=== PATIENT | male | born 1965 | race American Indian/Alaskan Native ===

== ENCOUNTER 2016-08-07 04:33 | Emergency (ER) | payer OTHER ==
[2016-08-07 06:04] LABS: Basophils % (Auto) 1.3 % (0.0-1.8); Eosinophils % (Auto) 3.8 % (0.0-4.3); Hematocrit 38.3 % (35.5-45.6); Hemoglobin 13.1 gm/dl (11.8-15.2); Mean Corpuscular HGB Conc 34 % (32-34); Mean Corpuscular Hemoglobin 33 pg (28-32); Mean Corpuscular Volume 95 fl (84-94); Platelet Count 299 K/mm3 (140-440); Red Blood Count 4.03 M/mm3 (3.65-5.03); Red Cell Distribution Width 14.1 % (13.2-15.2); White Blood Count 6.2 K/mm3 (4.5-11.0)
[2016-08-07 06:30] LABS: Alanine Aminotransferase 24 units/L (7-56); Albumin/Globulin Ratio 1.1 %; Alkaline Phosphatase 107 units/L (35-129); Anion Gap 18 mmol/L; Bilirubin,Total 0.2 mg/dL (0.1-1.2); Blood Urea Nitrogen 8 mg/dL (9-20); Carbon Dioxide 28 mmol/L (22-30); Chloride 96.3 mmol/L (98-107); Glucose 104 mg/dL (75-100); Lipase 42 units/L (13-60); Potassium 4.9 mmol/L (3.6-5.0); Sodium 137 mmol/L (137-145); Total Protein 7.6 g/dL (6.3-8.2)
[2016-08-07 07:18] LABS: Bacteria,Urine 1+ /HPF (Negative); Bilirubin,Urine NEG (Negative); Blood,Urine NEG (Negative); Ketones,Urine NEG (Negative); Leukocyte Esterase,Urine TR (Negative); Mucus,Urine FEW /HPF; Nitrite,Urine NEG (Negative); Protein,Urine <15 mg/dL mg/dL (Negative); Urobilinogen,Urine < 2.0 mg/dL (<2.0)
[2016-08-07] MEDS ORDERED: MORPHINE IV ONE (10:51)
[2016-08-07] MEDS ORDERED: NACL 0.9% 1000 ML 1,000 ML IV ONE (10:51)
[2016-08-07] MEDS ORDERED: ZOFRAN IV ONE (10:51)
--- NOTE | 2016-08-07 11:51 | XRay Report ---
ABDOMINAL SERIES: History: Abdominal pain. Erect chest film shows no acute or significant changes involving the heart or lung joyce. There is no evidence of free air beneath the diaphragms. The gas pattern within the abdomen is unremarkable. There is no evidence of bowel dilatation, significant air-fluid levels, or masses. Organ shadows are unremarkable. IMPRESSION: Abdominal series within normal limits.
--- NOTE | 2016-08-07 12:23 | Emergency Department Report ---
HPI - General Chief Complaint: Abdominal Pain Time Seen by Provider: 08/07/16 10:40 - HPI HPI: The patient is a 50-year-old male who presents for evaluation of abdominal pain. The patient reports on and off abdominal pain for the past 3 months, recurrent for the past 3 days, constant for the past 3 days, 8/10 in severity, cramping and burning in quality, and associated with constipation. The patient denies fever, vomiting, diarrhea, blood in the stool, dark tarry stool, dysuria , hematuria, flank pain, inability to pass flatus. ED Past Medical Hx - Past Medical History Previous Medical History?: No - Surgical History Past Surgical History?: No - Social History Smoking Status: Current Every Day Smoker Substance Use Type: None - Medications Home Medications: Home Medications Medication Instructions Recorded Confirmed Last Taken Type Omeprazole Magnesium [PriLOSEC Otc] 20 mg PO QDAY #14 tablet. 08/07/16 Unknown Rx Ondansetron [Zofran TAB] 4 mg PO Q8HR PRN #15 tablet 08/07/16 Unknown Rx traMADol [Ultram 50 MG tab] 50 mg PO Q6HR PRN #15 tablet 08/07/16 Unknown Rx ED Review of Systems ROS: Stated complaint: CONSTIPATION/ABD PAIN Other details as noted in HPI Constitutional: denies: fever ENT: denies: throat or neck pain Respiratory: denies: cough, shortness of breath Cardiovascular: denies: chest pain Endocrine: denies unexplained weight loss or gain Gastrointestinal: reports abdominal pain, nausea Genitourinary: denies: dysuria Musculoskeletal: denies: leg swelling Skin: denies: rash Neurological: denies: headache Hematological/Lymphatic: denies: easy bleeding or easy bruising Psych: denies sadness or hopelessness Physical Exam - Physical Exam Vital Signs: Vital Signs 08/07/16 08/07/16 08/07/16 05:23 10:53 11:00 Temperature 98.7 F 98.1 F Pulse Rate 79 74 Respiratory 18 15 13 Rate Blood Pressure 151/92 Blood Pressure 151/92 113/87 [Left] O2 Sat by Pulse 100 100 100 Oximetry Physical Exam: General: well-nourished, well-developed, no acute distress Head: Normocephalic, atraumatic Eyes: normal sclera ENT: Mucous membranes are pale and dry Neck: No neck stiffness, no cervical adenopathy Respiratory: Breath sounds equal bilaterally, no wheezing, rales, or rhonchi Cardio: S1 and S2 present, no murmurs, rubs, gallops, capillary refill is delayed Abdomen: Normoactive bowel sounds, soft abdomen, generalized tenderness to palpation present, no rigidity, no guarding or rebound tenderness Chest WALL/Back: No tenderness to palpation of the chest wall, no CVA tenderness with percussion Musc: No pitting edema Skin: No rash Neuro: no facial drooping, normal speech Psych: Normal affect ED Course Vital Signs 08/07/16 08/07/16 08/07/16 05:23 10:53 11:00 Temperature 98.7 F 98.1 F Pulse Rate 79 74 Respiratory 18 15 13 Rate Blood Pressure 151/92 Blood Pressure 151/92 113/87 [Left] O2 Sat by Pulse 100 100 100 Oximetry ED Medical Decision Making - Lab Data Result diagrams: 08/07/16 05:38 08/07/16 05:38 - Medical Decision Making The patient was seen and examined by myself. The patient is placed on a turn laster and continuous pulse ox. On initial evaluation, the patient was found to be in no distress. Evaluation orders are placed. IV access is established and the patient is given 1 L normal saline fluid bolus for treatment of dehydration, and Zofran for nausea, and IV morphine for pain. Lab results were non-concerning including WBC, hemoglobin, hematocrit, electrolytes , renal function, LFTs, lipase. The patient was reevaluated and reported that their symptoms were markedly improved. The patient is stable for discharge with outpatient follow-up. The patient is given follow-up and return instructions. The patient expressed understanding and agreed with the plan. The patient is discharged in stable condition. Critical care attestation.: If time is entered above; I have spent that time in minutes in the direct care of this critically ill patient, excluding procedure time. ED Disposition Clinical Impression: Acute generalized abdominal pain, Dehydration Disposition: DISCHARGED TO HOME OR SELFCARE Is pt being admited?: No Does the pt Need Aspirin: No Condition: Stable Instructions: Peptic Ulcer (ED), Gastroesophageal Reflux Disease (ED), Acute Abdominal Pain (ED) Prescriptions: Omeprazole Magnesium [PriLOSEC Otc] 20 mg PO QDAY #14 tablet. Ondansetron [Zofran TAB] 4 mg PO Q8HR PRN #15 tablet PRN Reason: Nausea traMADol [Ultram 50 MG tab] 50 mg PO Q6HR PRN #15 tablet PRN Reason: Pain Referrals: PRIMARY CARE,MD [Primary Care Provider] - 3-5 Days Time of Disposition: 12:05
[2016-08-07 14:26] VITALS: BP 95/65
== END 2016-08-07 12:35 | disposition home or self-care (01) ==
LOC: ED 04:33
DX: E86.0 Dehydration (principal); R10.84 Generalized abdominal pain; F17.200 Nicotine dependence, unspecified, uncomplicated
CPT/HCPCS: 36415; 74022; 80053; 81001; 83690; 85025; 96361; 96374; 96375; 99284; J2270; J2405; J7030

== ENCOUNTER 2019-08-16 11:25 | Emergency (ER) | payer SELFPAY ==
[2019-08-16] MEDS ORDERED: HALOPERIDOL LACTATE 5 MG/1 ML INJ IM PRN (11:48)
[2019-08-16] MEDS ORDERED: LORazepam 2 MG/ML VIAL IM PRN (11:48)
--- NOTE | 2019-08-16 11:57 | Emergency Department Report ---
<STEFANIA ECHOLS - Last Filed: 08/16/19 15:53> ED General Adult HPI - General Chief complaint: Overdose Stated complaint: EVALUATION PUI?: No Time Seen by Provider: 08/16/19 11:48 Source: patient, EMS ( EMS documentation not available at time of chart dictation ), RN notes reviewed Mode of arrival: Stretcher Limitations: Other (Patient is intoxicated) - History of Present Illness Initial comments: Patient is a 53-year-old gentleman who is not known to myself previously. He is brought to the hospital by emergency medical services. Apparently he was consuming alcohol today, may have overdosed on an [id number] herbal supplement from [facility], does not know what the supplement is, then apparently endorsed a complaint of suicidality and may have lost consciousness or passed out. The patient denies physical pain. He states he is not homicidal or suicidal at this time. He denies cough, fever, exposure to coronavirus, and he denies DVT or pulmonary embolism risk factors. He indicates that he is "drunk", but he denies additional symptoms. At the moment, collateral information is not available from friends or family. The patient is not accompanied by anyone at this time. -: Sudden Consistency: now resolved Improves with: none Worsens with: none - Related Data Previous Rx's Medication Instructions Recorded Last Taken Type Omeprazole Magnesium [PriLOSEC Otc] 20 mg PO QDAY #14 tablet. 08/07/16 Unknown Rx Ondansetron [Zofran TAB] 4 mg PO Q8HR PRN #15 tablet 08/07/16 Unknown Rx traMADoL [Ultram 50 MG tab] 50 mg PO Q6HR PRN #15 tablet 08/07/16 Unknown Rx Allergies Allergy/AdvReac Type Severity Reaction Status Date / Time No Known Allergies Allergy Unverified 08/07/16 05:29 ED Review of Systems Comment: Unobtainable due to pts medical conditions Constitutional: denies: fever Cardiovascular: syncope. denies: chest pain Gastrointestinal: denies: abdominal pain Neurological: confusion Psychiatric: as per HPI. denies: visual hallucinations, homicidal thoughts ED Past Medical Hx - Social History Smoking Status: Current Every Day Smoker Substance Use Type: None - Medications Home Medications: Home Medications Medication Instructions Recorded Confirmed Last Taken Type Omeprazole Magnesium [PriLOSEC Otc] 20 mg PO QDAY #14 tablet. 08/07/16 Unknown Rx Ondansetron [Zofran TAB] 4 mg PO Q8HR PRN #15 tablet 08/07/16 Unknown Rx traMADoL [Ultram 50 MG tab] 50 mg PO Q6HR PRN #15 tablet 08/07/16 Unknown Rx ED Physical Exam - General Limitations: Other (Alcohol intoxication) General appearance: appears intoxicated - Head Head exam: Present: atraumatic, normocephalic - Eye Eye exam: Present: normal appearance, PERRL, EOMI. Absent: nystagmus - ENT ENT exam: Present: normal exam, normal orophraynx, mucous membranes moist, TM's normal bilaterally, normal external ear exam, other (There is no nasal septal hematoma. There is no hemotympanum) - Neck Neck exam: Present: normal inspection. Absent: tenderness, meningismus - Respiratory Respiratory exam: Present: normal lung sounds bilaterally. Absent: respiratory distress - Cardiovascular Cardiovascular Exam: Present: regular rate, normal rhythm, normal heart sounds. Absent: bradycardia, tachycardia, irregular rhythm, systolic murmur, diastolic murmur, rubs, gallop - GI/Abdominal GI/Abdominal exam: Present: soft, normal bowel sounds. Absent: distended, tenderness, guarding, rebound, rigid, pulsatile mass - Rectal Rectal exam: Present: deferred - Extremities Exam Extremities exam: Present: normal inspection, full ROM, other (2+ pulses noted in the bilateral upper and lower extremities. There is no palpable cord. negative Homans sign. Muscular compartments are soft. The pelvis is stable.). Absent: pedal edema, calf tenderness - Back Exam Back exam: Present: normal inspection, full ROM. Absent: tenderness, CVA tenderness (R), CVA tenderness (L), paraspinal tenderness, vertebral tenderness - Neurological Exam Neurological exam: Present: altered, other (No facial droop. Tongue midline. Extraocular movements intact bilaterally. Facial sensation intact to light touc h in V1, V2, V3 distribution bilaterally. 5 and a 5 strength in 4 extremities. Sensation intact to light touch in 4 extremities.) - Psychiatric Psychiatric exam: Present: agitated. Absent: homicidal ideation - Skin Skin exam: Present: warm, dry, intact, normal color. Absent: rash ED Course - Reevaluation(s) Reevaluation #1: 08/16/19 13:36 Differential diagnosis, including but not limited to: Alcohol intoxication, overdose, orthostasis, vagal event, structural cardiac disease, medical clearance for psychiatric placement, intracranial injury, spinal injury Assessment and plan: 53-year-old gentleman who is clinically intoxicated, with report of overdose, uncertain time of ingestion, unknown agent of ingestion, who is not currently tachycardic, tachypneic or hypoxic, and denies DVT and pulmonary embolism risk factors, and by history appears to be low risk by Wells criteria. He is placed on a 1013 for lack of decision-making capacity, lack of ability to care for himself, and history of overdose. A psychiatric consultation is requested. Screening laboratory studies, EKG have been ordered. CT scan of the brain and cervical spine are ordered. Patient initially tried to get up and leave, and with verbal discussion, we were able to calmly de-escalate the situation. However, as needed Haldol and Ativan have been ordered in case the patient develops agitation. Reevaluation #2: 08/16/19 15:36 Playing on a cellular phone at this time, and in no acute distress. Vital signs have remained stable. No arrhythmias noted. No loss of consciousness noted. CT scan of the brain and cervical spine are negative for acute findings. Pending psychiatric evaluation. Still clinically intoxicated. 08/16/19 15:53 At this point in time, the patient is medically suitable for psychiatric evaluation, consultation, and placement. He does not appear to have an immediate medical contraindication that would preclude the aforementioned. ED Medical Decision Making - Lab Data Result diagrams: 08/16/19 12:16 08/16/19 12:16 Vital Signs 08/16/19 08/16/19 08/16/19 12:02 12:13 13:00 Temperature 97.8 F Pulse Rate 74 70 Respiratory 12 10 L Rate Blood Pressure 149/106 151/95 Blood Pressure 149/104 [Left] O2 Sat by Pulse 100 99 100 Oximetry - EKG Data -: EKG Interpreted by Id Rate: normal - EKG Data When compared to previous EKG there are: previous EKG unavailable 08/16/19 13:34 No prior EKGs available for comparison at this time. This is a sinus rhythm, 68 bpm, normal axis, QTC 447 ms, left ventricular hypertrophy, right bundle branch block morphology, the UT intervals within normal limits, the EKG is abnormal, there is no prior for comparison, the EKG is not a STEMI - Radiology Data Radiology results: pending, report reviewed, image reviewed Print Report Referring Physician: STEFANIA ECHOLS Patient Name: GUILLERMO TRISTAN Date of : 1965 Sex: Male Report Date: 2019-08-16 Report Status: Finalized Findings [facility], [place] [address] [place] [address] XRay Report Signed Patient: GUILLERMO TRISTAN MR#: [id number] : 1965 Acct:[id number] Age/Sex: 53 / M ADM Date: 08/16/19 Loc: ED Attending Dr: Ordering Physician: STEFANIA ECHOLS MD Date of Service: 08/16/19 Procedure(s): XR chest 1V ap Accession Number(s): [id number] cc: STEFANIA ECHOLS MD Fluoro Time In Minutes: CHEST 1 VIEW 08/16/2019 12:19 PM INDICATION / CLINICAL INFORMATION: etoh intox, syncope. COMPARISON: None available. FINDINGS: SUPPORT DEVICES: None. HEART / MEDIASTINUM: No significant abnormality. LUNGS / PLEURA: No significant pulmonary or pleural abnormality. No pneumothorax. ADDITIONAL FINDINGS: No significant additional findings. IMPRESSION: 1. No acute findings. Signer Name: Byron Lee MD Signed: 08/16/2019 1:20 PM Workstation Name: [id number] Transcribed By: MADELYN Dictated By: Byron Lee MD Electronically Authenticated By: Byron Lee MD Signed Date/Time: 08/16/19 132 DD/ 1320 ED Disposition Clinical Impression: Acute alcohol intoxication, Suicidal ideation, Drug ingestion, Depression Disposition: DC-01 TO HOME OR SELFCARE Condition: Stable Instructions: Abuse of Alcohol (ED), Depression (ED) <KANDI HERRON - Last Filed: 08/16/19 19:04> ED Review of Systems ROS: Stated complaint: EVALUATION Other details as noted in HPI ED Course Vital Signs 08/16/19 08/16/19 08/16/19 12:02 12:13 13:00 Temperature 97.8 F Pulse Rate 74 70 Respiratory 12 10 L Rate Blood Pressure 149/106 151/95 Blood Pressure 149/104 [Left] O2 Sat by Pulse 100 99 100 Oximetry ED Medical Decision Making - Lab Data Result diagrams: 08/16/19 12:16 08/16/19 12:16 - Medical Decision Making Mr. Tristan is now clinically sober. Mental health agricultural extension agent recommended discharge home. Patient repeatedly denied intention to harm himself. He did take diet pills during a heated argument with his . Mental health agricultural extension agent corroborated patient's statements with history from the . He is discharged home with outpatient resources. I have spoken with the patient. I feel that he is appropriate for discharge. 1013 has been rescinded by psychiatric team. Critical care attestation.: If time is entered above; I have spent that time in minutes in the direct care of this critically ill patient, excluding procedure time. ED Disposition Is pt being admited?: No Does the pt Need Aspirin: No
[2019-08-16 12:32] LABS: Hematocrit 44.2 % (35.5-45.6); Hemoglobin 15.2 gm/dl (11.8-15.2); Mean Corpuscular HGB Conc 34 % (32-34); Mean Corpuscular Volume 93 fl (84-94); Platelet Count 251 K/mm3 (140-440); Red Blood Count 4.78 M/mm3 (3.65-5.03); Red Cell Distribution Width 15.2 % (13.2-15.2)
[2019-08-16 12:42] LABS: Mucus,Urine FEW /HPF; WBC,Urine < 1.0 /HPF (0.0-6.0)
[2019-08-16 12:42] LABS: INR 1.09 (0.87-1.13)
[2019-08-16 12:44] LABS: Bilirubin,Urine NEG (Negative); Blood,Urine SM (Negative); Color,Urine Colorless (Yellow); Protein,Urine <15 mg/dL mg/dL (Negative); Urobilinogen,Urine < 2.0 mg/dL (<2.0)
[2019-08-16 12:47] LABS: Alanine Aminotransferase 32 units/L (7-56); Albumin 4.9 g/dL (3.9-5); BUN/Creatinine Ratio 16; Blood Urea Nitrogen 16 mg/dL (9-20); Calcium 10.1 mg/dL (8.4-10.2); Hemolysis Index 7
--- NOTE | 2019-08-16 13:25 | XRay Report ---
CHEST 1 VIEW 08/16/2019 12:19 PM INDICATION / CLINICAL INFORMATION: etoh intox, syncope. COMPARISON: None available. FINDINGS: SUPPORT DEVICES: None. HEART / MEDIASTINUM: No significant abnormality. LUNGS / PLEURA: No significant pulmonary or pleural abnormality. No pneumothorax. ADDITIONAL FINDINGS: No significant additional findings. IMPRESSION: 1. No acute findings. Signer Name: Byron Lee MD Signed: 08/16/2019 1:20 PM Workstation Name: [id number]
[2019-08-16 13:43] LABS: Benzodiazepines Screen,Urine PRESUMPTIVE NEGATIVE; Cannabinoid Screen,Urine PRESUMPTIVE NEGATIVE; Methadone Screen,Urine PRESUMPTIVE NEGATIVE; Opiate Screen,Urine PRESUMPTIVE NEGATIVE
[2019-08-16 14:00] LABS: Amphetamine Screen,Urine PRESUMPTIVE POSITIVE; Cocaine Screen,Urine PRESUMPTIVE POSITIVE
--- NOTE | 2019-08-16 14:13 | Cat Scan Report ---
CT head/brain wo con INDICATION / CLINICAL INFORMATION: 53 years Male; etoh intox, fell hit head. TECHNIQUE: Routine CT head without contrast. All CT scans at this location are performed using CT dos e reduction for ALARA by means of automated exposure control. COMPARISON: None. FINDINGS: BRAIN / INTRACRANIAL CONTENTS: There appears be mild cerebral white matter disease most consistent wi th microvascular angiopathy. The ventricular system is appropriate in size and configuration. There i s no CT evidence of acute intracranial hemorrhage or significant mass effect. ORBITS: No significant abnormality of visualized orbits. SINUSES / MASTOIDS: No significant abnormality the visualized paranasal sinuses or mastoid air cells. CRANIOCERVICAL JUNCTION: No significant abnormality. ADDITIONAL FINDINGS: None. IMPRESSION: 1. This mild microvascular angiopathy without CT evidence of acute intracranial hemorrhage. Signer Name: Siddharth Graham MD Signed: 08/16/2019 2:09 PM Workstation Name: [id number]
--- NOTE | 2019-08-16 14:19 | Cat Scan Report ---
CT cervical spine wo con INDICATION / CLINICAL INFORMATION: 53 years Male; etoh intox, fell hit head. TECHNIQUE: Axial CT images of the cervical spine were obtained. Sagittal and coronal reformatted images were pr oduced. All CT scans at this location are performed using CT dose reduction for ALARA by means of aut omated exposure control. COMPARISON: None available. FINDINGS: POST-SURGICAL CHANGES: None. ALIGNMENT: There is no significant spondylolisthesis involving the cervical spine. VERTEBRAE: There are degenerative endplate changes at C5-6 and C6-7. There is no CT evidence of acut e fracture involving the cervical spine. INTRAVERTEBRAL DISCS: The central disc bulge at C2-3 effaces the ventral subarachnoid space at. There is moderate to marked neural foraminal narrowing bilaterally at C3-4, greater on the right. The posterior spondylosis at C5-6 effaces the ventral subarachnoid space. The marked neural foraminal narrowing is greater on the left. There is marked foraminal narrowing bilaterally at C6-7. The spond ylosis also encroaches on the lateral recesses. PARASPINAL SOFT TISSUES: No prevertebral soft tissue fluid collections are identified. ADDITIONAL FINDINGS: None IMPRESSION: 1. There is no CT evidence of acute fracture involving the cervical spine. 2. There are multilevel degenerative changes as detailed above. Signer Name: Siddharth Graham MD Signed: 08/16/2019 2:14 PM Workstation Name: [id number]
[2019-08-16 19:28] VITALS: BP 107/80
== END 2019-08-16 19:28 | disposition home or self-care (01) ==
LOC: ED 11:25
DX: F10.129 Alcohol abuse with intoxication, unspecified (principal); R45.851 Suicidal ideations; F32.9 Major depressive disorder, single episode, unspecified; T50.905A Adverse effect of unspecified drugs, medicaments and biological substances, initial encounter; F17.200 Nicotine dependence, unspecified, uncomplicated; Z79.899 Other long term (current) drug therapy
CPT/HCPCS: 36415; 70450; 71045; 72125; 80053; 80307; 80320; 81001; 82550; 83735; 84443; 84484; 85027; 85610; 93005; G0480